=== PATIENT | male | born 1935 | race Caucasian/White ===

== ENCOUNTER 2017-05-10 08:31 | Emergency (ER) | payer BC ==
[2017-05-10] MEDS ORDERED: CLINDAMYCIN 150 MG CAP PO ONE (08:59)
--- NOTE | 2017-05-10 09:01 | Emergency Department Record ---
History of Present Illness - General Chief complaint: Extremity Problem Stated complaint: LT HAND KNUCKLE SWELLING RADIATING OUTWARD Time Seen by Provider: 05/10/17 08:59 Source: Patient Mode of Arrival: Ambulatory Limitations: No limitations - History of Present Illness Initial comments: 81 yo male presents with left hand pain, redness and swelling. This has been ongoing for 2 days. He did initial drain pus from the area. No pain With ROM or limitation. No streaking up the arm. No fever. He is unaware of a specific injury or trauma. It is localized over the MCP of the index and middle finger (more on the index). MD Complaint: Extremity pain, Extremity swelling, Joint swelling Onset/Timin -: Days(s) Location: Left, Hand History of Same: Yes -: No Arthralgia Radiation: None Severity scale (1-10): 2 Quality: Other Consistency: Intermittent Improves with: Nothing Worsens with: Nothing Associated Symptoms: Denies other symptoms - Related Data Home Medications Medication Instructions Recorded Confirmed Last Taken Clopidogrel Bisulfate [Plavix] 75 mg PO DAILY 05/10/17 05/10/17 05/09/17 Simvastatin [Zocor] 20 mg PO DAILY 05/10/17 05/10/17 05/09/17 Previous Rx's Medication Instructions Recorded Clindamycin HCl 300 mg PO QID #28 capsule 05/10/17 Allergies Allergy/AdvReac Type Severity Reaction Status Date / Time No Known Drug Allergies Allergy Verified 05/10/17 08:41 Travel Screening - Travel/Exposure Within Last 30 Days Have you traveled within the last 30 days?: No - Travel/Exposure Within Last Year Have you traveled outside the [place] in the last year?: No - Additonal Travel Details Have you been exposed to anyone with a communicable illness?: No - Travel Symptoms Symptom Screening: None Review of Systems Constitutional: Denies: Chills, Fever, Malaise, Weakness Eyes: Denies: Eye discharge ENT: Denies: Congestion, Throat pain Respiratory: Denies: Cough, Dyspnea Cardiovascular: Denies: Chest pain, Syncope Endocrine: Denies: Fatigue Gastrointestinal: Denies: Abdominal pain, Diarrhea, Nausea, Vomiting Genitourinary: Denies: Dysuria, Frequency, Hematuria Musculoskeletal: Reports: As per HPI, Joint swelling. Denies: Arthralgia, Myalgia Skin: Reports: As per HPI, Change in color Neurological: Denies: Confusion, Headache Psychiatric: Denies: Anxiety Hematological/Lymphatic: Denies: Blood Clots, Easy bleeding, Easy bruising, Swollen glands Past Medical History - SOCIAL HISTORY Smoking Status: Former smoker Alcohol Use: Occassional Drug Use: None - RESPIRATORY Hx Respiratory Disorders: Yes Hx Pneumonia: Yes - CARDIOVASCULAR Hx Cardio Disorders: Yes Hx Hypertension: Yes (has had episodes of high blood pressure meds dont help it. 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) - GI Hx GI Disorders: No - Hx Genitourinary Disorders: Yes Hx Kidney Stones: Yes - ENDOCRINE Hx Endocrine Disorders: No - MUSCULOSKELETAL Hx Musculoskeletal Disorders: Yes Hx Arthritis: Yes Hx Gout: Yes (hx of) - PSYCH Hx Psych Problems: No - HEMATOLOGY/ONCOLOGY Hx Hematology/Oncology Disorders: No Family Medical History Any Significant Family History?: Yes Hx Dementia: Mother Physical Exam - General General Appearance: Alert, Oriented x3, Cooperative, No acute distress Limitations: No limitations - Head Head exam: Atraumatic - Eye Eye exam: Normal appearance - ENT ENT exam: Normal exam Ear exam: Normal external inspection Nasal Exam: Normal inspection Mouth exam: Normal external inspection - Neck Neck exam: Normal inspection - Respiratory Respiratory exam: Normal lung sounds bilaterally. negative: Respiratory distress - Cardiovascular Cardiovascular Exam: Regular rate, Normal rhythm, Normal heart sounds Peripheral Pulses: 2+: Radial (R), Radial (L) - Rectal Rectal exam: Deferred - exam: Deferred - Extremities Extremities exam: Full ROM, Joint swelling, Normal capillary refill. negative: Normal inspection, Tenderness Image of Hand: 1 - mild swelling, mild erythema, slight swelling index MCP greater than middle finger, full ROM without limi or pain, no joint pain with movement, no streaking, no fluctuance to suggest pus remains - Neurological Neurological exam: Alert, Oriented X3 - Psychiatric Psychiatric exam: Normal affect, Normal mood. negative: Agitated, Anxious - Skin Skin exam: Erythema Course Vital Signs 05/10/17 08:44 Temperature 98.2 F Pulse Rate 80 Respiratory 20 Rate Blood Pressure 137/57 Pulse Ox 99 - Reevaluation(s) Reevaluation #1: Very mild swelling and redness at the index and middle finger MCP with Full ROM , no joint irritability. Clindamycin given and prescribed 05/10/17 09:08 Disposition Disposition: Discharge Clinical Impression: Cellulitis Qualifiers: Site of cellulitis: extremity Site of cellulitis of extremity: upper extremity Laterality: left Qualified Code(s): L03.114 - Cellulitis of left upper limb Disposition: Home, Self-Care Condition: (1) Good Instructions: Cellulitis (ED) Additional Instructions: Elevate the hand as much as possible Return if worse, drainage, increased pain or any new concerns Clindamycin as directed Prescriptions: Clindamycin HCl 300 mg PO QID #28 capsule Forms: Patient Portal Access Time of Disposition: 09:01
== END 2017-05-10 09:08 | disposition home or self-care (01) ==
LOC: ER 08:31
DX: L03.114 Cellulitis of left upper limb (principal); I10 Essential (primary) hypertension; Z87.891 Personal history of nicotine dependence
CPT/HCPCS: 99282